=== PATIENT | female | born 1965 | race Caucasian/White ===

== ENCOUNTER → 2018-05-05 14:58 | Outpatient (CLI) | payer OTHER, SELFPAY ==
[2018-05-05 15:34] LABS: Hematocrit 40.8 % (36-46); Hemoglobin 13.9 g/dL (12.0-16.0); Mean Corpuscular Hemoglobin 31.2 PG (26-34); Mean Corpuscular Volume 91.8 fL (80-100); Platelet Count 345 X10^3/uL (150-400); Red Blood Cell Count 4.44 X10^6/uL (4.0-5.2); Red Cell Distribution Width 12.5 % (11.6-14.8); White Blood Cell Count 7.5 X10^3/uL (4.5-11.0)
[2018-05-05 16:57] LABS: Neutrophils Absolute Manual 4500 /uL (3000-5900); Nucleated Red Blood Cells 1 #/Diff; RBC Morphology Normal Morphology; Total Cells Counted 100
[2018-05-07 19:56] LABS: Immunoglobulin E 36 kU/L (< 115)
== END ==
PROVIDERS: Family Provider Physician Assistant; PCP Physician Assistant; Visit Provider Internal Medicine
DX: J45.41 Moderate persistent asthma with (acute) exacerbation (principal)
CPT/HCPCS: 36415; 82785; 85025

== ENCOUNTER → 2018-06-02 14:39 | Outpatient (CLI) | payer OTHER, SELFPAY ==
--- NOTE | 2018-06-25 08:12 | PM.PFT.1 ---
Pulmonary Function Test Referral & Results Date Patient Seen: 06/02/18 Requesting provider: Rocky Briseno Indication: J45.41 Results: The spirometry demonstrates an FVC of 3.08 L which is 70% of predicted. The FEV1 was measured at 1.80 L which is 58% of predicted. The FEV1/FVC ratio was 58 which is 73% of predicted. Following the administration of bronchodilator there was a 40% improvement in FEV1 and a 21% improvement in FEV1/FEC ratio. In addition it was 170% improvement in FEF 25-75%. Lung volumes show an SVC of 3.38 L which is 94% of predicted. The diffusing capacity was measured at 27.58 which is 93% of predicted. The maximum voluntary ventilation was reduced Interpretation: This study demonstrates moderate obstructive lung disease with evidence of significant benefit following bronchodilator based on improvement in FEV1, FEV1/FVC ratio, and FEF 25-75% as above This is consistent with a diagnosis of asthma
== END ==
PROVIDERS: Family Provider Physician Assistant; PCP Physician Assistant; Visit Provider Internal Medicine
DX: J45.41 Moderate persistent asthma with (acute) exacerbation (principal); J44.1 Chronic obstructive pulmonary disease with (acute) exacerbation; R05 Cough; R06.09 Other forms of dyspnea
CPT/HCPCS: 94060; 94726; 94729

== ENCOUNTER 2024-10-25 20:13 | Emergency (ER) | payer OTHER, SELFPAY ==
[2024-10-25 20:16] VITALS: BP 158/76; PULSE 81; RESP 16; TEMP 37.1; O2SAT 98; BMI 26.6
--- NOTE | 2024-10-25 20:25 | PC.NURSE ---
Patient requesting to leave from triage.
== END 2024-10-25 20:25 | disposition left against medical advice (07) ==
PROVIDERS: Emergency Provider Emergency Medicine; Family Provider Physician Assistant; PCP Physician Assistant
DX: Z53.21 Procedure and treatment not carried out due to patient leaving prior to being seen by health care provider (principal)
CPT/HCPCS: 99281